=== PATIENT | female | born 1945 | race Caucasian/White ===

== ENCOUNTER 2019-03-06 08:29 | Day surgery (SDC) | payer MEDICARE, BC ==
[2019-03-06] MEDS ORDERED: ONDANSETRON HCL IV 4 MG/2 ML VIAL IVP ONE (08:30)
[2019-03-06] MEDS ORDERED: LIDOCAINE 2% MDV (20MG/ML) 20ML VIAL IV ONE (08:30)
[2019-03-06] MEDS ORDERED: PROPOFOL 10 MG/ML VIAL IV ONE (08:30)
--- NOTE | 2019-03-07 09:20 | Operative Note ---
DATE OF SURGERY: 03/06/2019 OPERATION: COLONOSCOPY with cold forceps polypectomy. PREOPERATIVE DIAGNOSIS: Personal history of colon polyps. POSTOPERATIVE DIAGNOSES: 1. Transverse colon polyp. 2. Hemorrhoids. PROCEDURE: After informed consent was obtained from the patient, she was placed in the left lateral decubitus position in the endoscopy suite, sedated and monitored by the department of anesthesia. Digital rectal exam was unremarkable. A well-lubricated KED111 colonoscope was inserted into the rectum and advanced through a tortuous and somewhat restricted sigmoid colon to the level of the descending colon, transverse colon, ascending colon, and ultimately to the cecum. Transabdominal pressure was required to intubate the cecal cap. The cecum and cecal bulb were unremarkable. The preparation quality was excellent. The ascending colon was unremarkable as well. The transverse colon revealed diminutive polyp removed with a cold forceps. The remainder of the transverse colon, descending colon, sigmoid colon, and rectum were otherwise unremarkable. Forward and J-turn views of the anorectum revealed internal hemorrhoids with white discoloration suggestive of possible prolapsing hemorrhoid. No other abnormalities readily identified. The endoscope was straightened, the rectal ampulla deflated, and the endoscope was removed. RECOMMENDATIONS: I would suggest the patient follow a high-fiber diet. She should undergo repeat exam in 5 years should her health allow. As always, thank you for allowing me to participate in the healthcare of your patients. CC: DO GRETCHEN Knox
== END 2019-03-06 10:00 | disposition home or self-care (01) ==
LOC: HOP 08:29
PROVIDERS: ATTEND Internal Medicine Gastroenterology
DX: Z12.11 Encounter for screening for malignant neoplasm of colon (principal); Z86.010 Personal history of colon polyps; D12.3 Benign neoplasm of transverse colon; E78.00 Pure hypercholesterolemia, unspecified
CPT/HCPCS: 45380; 00811; 88305; J2405